=== PATIENT | female | born 1975 | race Caucasian/White ===

== ENCOUNTER 2025-04-16 09:54 | Emergency (ER) | payer BC, SELFPAY ==
[2025-04-16 09:55] VITALS: BMI 30.4
[2025-04-16 10:02] VITALS: BP 132/81; PULSE 81; RESP 18; TEMP 37.2; O2SAT 98
--- NOTE | 2025-04-16 10:10 | EDNOTE_ITS ---
ED Animal Bite RME/HPI General Chief Complaint: Animal Bite Stated Complaint: DOG BITE TO FACE TUESDAY NIGHT Time Seen by Provider: 04/16/25 09:58 Arrival date/time: 04/16/25 09:54 49-year-old female presents to the emergency department today stating that on Tuesday night her 2 dogs got into it and she them when she did one of her dogs accidentally bit her in the face Limitations: no limitations Related Data Previous Rx's ?Medication ?Instructions ?Recorded Hydrocodone/Acetaminophen * (NORCO 1 tab PO Q4H PRN PA IN #14 tabs 08/17/15 5/325 *) amoxicillin 875 mg-potassium 1 tab PO BID 10 days #20 tabs 04/16/25 clavulanate 125 mg tablet clindamycin HCl 300 mg capsule 300 mg PO TID 7 days #2 1 caps 04/16/25 ibuprofen 800 mg tablet 800 mg PO TID PRN pain #30 t abs 04/16/25 mupirocin 2 % topical ointment 1 applic topical TID 10 days #22 04/16/25 grams tramadol 50 mg tablet 50 mg PO BID PRN pain #6 tab s 04/16/25 Allergies Allergy/AdvReac Type Severity Reaction Status Date / Time No Known Allergies Allergy Verified 04/16/25 09:59 Review of Systems Review of Systems Systems Reviewed: All systems reviewed, normal except as documented Constitutional Constitutional: Reports system reviewed and no additional complaints, except as documented, Denies fever(s) and Denies headache(s) Eyes Eyes: Reports system reviewed and no additional complaints, except as documented and Denies blurry vision ENT Ears, Nose, Mouth, and Throat: Reports system reviewed and no additional complaints, except as documented, Denies headache(s), Denies nasal congestion and Denies nasal discharge Cardiovascular Cardiovascular: Reports system reviewed and no additional complaints, except as documented, Denies chest pain and Denies dyspnea Respiratory Respiratory: Reports system reviewed and no additional complaints, except as documented, Denies chest congestion, Denies cough and Denies dyspnea Gastrointestinal Gastrointestinal: Reports system reviewed and no additional complaints, except as documented and Denies abdominal pain Integumentary/Breasts Skin/Breast: Reports system reviewed and no additional complaints, except as doc umented, Denies rash and Reports wounds (Dog bite right side of face) Neurologic Neurologic: Reports system reviewed and no additional complaints, except as documented, Reports as per HPI and Denies headache(s) Past Medical History Past Medical History CARDIAC: Negative Cardiac Disorders or Congestive Heart Failure RESPIRATORY: Negative Chronic Obstructive Pulmonary Disease (COPD) or Asthma GENITOURINARY: Negative Renal Disease ENDOCRINE: Negative Diabetes Mellitus Type 1 or Diabetes Mellitus Type 2 HEMATOLOGIC: Negative Sickle Cell Disease Social History SMOKING STATUS: Never smoker ED Exam General Limitations: Present no limitations General appearance: Present alert and in no apparent distress Eye Eye exam: Present normal appearance, PERRL and EOMI ENT ENT exam: Present normal exam, normal oropharynx and mucous membranes moist Neck Neck exam: Present normal inspection, full ROM and trachea midline Chest Chest inspection: Present normal inspection and symmetric chest wall rise Respiratory Respiratory exam: Present normal lung sounds bilaterally Cardiovascular Cardiovascular exam: Present regular rate, normal rhythm and normal heart sounds Abdominal Exam Abdominal exam: Present soft and normal bowel sounds Extremities Exam Extremities exam: Present normal inspection and full ROM Back Exam Back exam: Present normal inspection and full ROM Neurological Exam Neurological exam: Present alert, oriented X3, CN II-XII intact, normal gait and reflexes normal; Absent motor sensory deficit Psychiatric Psychiatric exam: Present normal affect and normal mood Skin Skin exam: Present warm, dry and other (Dog bite right cheek mild erythema no significant swelling) Course Quality Measures none Orders Category Date Time Status Ibuprofen Tab [Motrin Tab] Med 04/16/25 10:10 Discontinued 600 mg PO X1 ONE Lidocaine 1% 20 ml [Xylocaine 1% 20 ML] Med 04/16/25 10:10 Discontinued 2.1 ml INFL X1 ONE TET,DIP/PERT AC (Adult)-Tdap [Boostrix Adult (Tdap) Med 04/16/25 10:32 Discontinued Vacc] 0.5 ml IMI .ONCE ONE cefTRIAXone [Rocephin] Med 04/16/25 10:10 Discontinued 1,000 mg IM X1 ONE Vital Signs Vital signs: Vital Signs Temperature 98.9 F 04/16/25 10:02 Pulse Rate 81 04/16/25 10:02 Respiratory Rate 18 04/16/25 10:02 Blood Pressure 132/81 H 04/16/25 10:02 Pulse Oximetry (%) 98 04/16/25 10:02 Oxygen Delivery Method Room Air 04/16/25 10:02 O2 saturation 98% room air within normal limits Animal Bite MDM Narrative MDM Narrative:: 49-year-old female presents to the emergency department today stating that on Tuesday night her 2 dogs got into it and she them when she did one of her dogs accidentally bit her in the face On exam patient well-appearing patient does not appear ill or toxic no acute distress Patient is hemodynamically stable does not appear septic On exam patient has mild swelling to the right cheek. Patient has approximately 2 cm laceration to the right cheek patient does report there were some drainage this morning Patient given injection of antibiotics here discharged home with pain medication antibiotics Patient discharged home in no distress to follow-up with primary care doctor in the next 24 to 48 hours and for any worsening symptoms to return to the ER immediately Patient data External records reviewed:: [facility] previous records Clinical information provided by:: patient Social determinants that could affect healthcare access:: none Patient has the following chronic illnesses:: None How is presenting disease/condition affected by chronic disease/condition?: no chronic disease Evaluation data The following diagnostics were reviewed and interpreted by me:: other (specify) (N/A) Lab and/or radiology exams considered but not ordered:: Consider not ordered Interpretation Summary: N/A Medications / Prescriptions Medications or Prescriptions considered but not ordered:: Given Medication administrations:: Medication Administration History Discontinued Medications Ceftriaxone Sodium (Ceftriaxone Sod Inj 1,000 Mg Vial) 1,000 mg IM X1 ONE Stop: 04/16/25 10:11 Last Admin: 04/16/25 10:48 Dose: 1,000 mg Documented By: BUSHRA Diphtheria/Tetanus/Acell Pertussis (Diphth,Pertuss(Acell),Tet Vac 0.5 Ml Syr- Adult) 0.5 ml IMi .ONCE ONE Stop: 04/16/25 10:33 Last Admin: 04/16/25 10:42 Dose: 0.5 ml Documented By: BUSHRA Ibuprofen (Ibuprofen Tab 600 Mg Tablet) 600 mg PO X1 ONE Stop: 04/16/25 10:11 Last Admin: 04/16/25 10:42 Dose: 600 mg Documented By: BUSHRA Lidocaine HCl (Lidocaine Hcl 1% 20 Ml Vial) 2.1 ml INFL X1 ONE Stop: 04/16/25 10:11 Last Admin: 04/16/25 10:44 Dose: 2.1 ml Documented By: BUSHRA Given Consultations Consultation(s) initiated? (list below): No Diagnosis Most likely diagnosis given after review of the tests above:: Dog bite Admission Indicated Admission indicated?: not indicated Admission Request Was there a request for admission?: No Disposition Plan Disposition Plan: Discharge Discharge Attestation Discharge Attestation: The patient and all family members were given an opportunity to ask questions and understood the discharge instructions. Discharge instructions specifically effects, indications for sooner follow up or return to the emergency department, and the expected course of current diagnosis. Patient condition: Stable Discharge Plan Plan Patient Disposition: HOME (Self Care) Discharge Disposition comment: Stable Prescriptions/Referrals Prescriptions/Med Rec: New clindamycin HCl 300 mg capsule 300 mg PO TID 7 Days Qty: 21 0RF ibuprofen 800 mg tablet 800 mg PO TID PRN (Reason: pain) Qty: 30 0RF mupirocin 2 % ointment 1 applic topical TID 10 Days Qty: 22 0RF amoxicillin-pot clavulanate 875-125 mg tablet 1 tab PO BID 10 Days Qty: 20 0RF tramadol 50 mg tablet 50 mg PO BID PRN (Reason: pain) Qty: 6 0RF No Action Hydrocodone/Acetaminophen * (NORCO 5/325 *) 1 TAB tablet 1 tab PO Q4H PRN (Reason: PAIN) Qty: 14 0RF Rx Instructions: FOR PAIN Problem List Clinical Impression: Infected dog bite of cheek Patient/Caregiver Discharge Instructions Education Materials: ED Dog Bite Additional Instructions: Please follow up with your primary care doctor in the next 24-48hrs for any worsening symptoms return here immediately Print Language: [place] Stand Alone Forms: Natacha Award Info., Patient Portal Info Letter Vaccines Vaccines Given During Stay: TDaP PA/RESEARCH FELLOW Supervising Physician PA/RESEARCH FELLOW Supervising Physician: Dr. Benitez
[2025-04-16] MEDS: DIPHTH,PERTUSS(ACELL),TET VAC 0.5 ML SYR- ADULT IMi (10:42)
[2025-04-16] MEDS: IBUPROFEN TAB 600 MG TABLET PO (10:42)
[2025-04-16] MEDS: LIDOCAINE HCL 1% 20 ML VIAL 2.1 ML INFL (10:44)
[2025-04-16] MEDS: cefTRIAXone SOD INJ 1,000 MG VIAL 1000 MG IM (10:48)
== END 2025-04-16 11:03 | disposition home or self-care (01) ==
PROVIDERS: Emergency Provider Emergency Medicine; PCP Internal Medicine
DX: S01.451A Open bite of right cheek and temporomandibular area, initial encounter (principal); Z23 Encounter for immunization; W54.0XXA Bitten by dog, initial encounter; L08.9 Local infection of the skin and subcutaneous tissue, unspecified
CPT/HCPCS: 90715; 96372; 99283; J0696; J3490; A9270